=== PATIENT | male | born 1960 | race Hispanic/Latino ===

== ENCOUNTER 2019-10-30 15:49 | Observation (INO) | payer OTHER ==
[2019-10-30] MEDS ORDERED: ASPIRIN 81 MG CHEWABLE TABLET ONE (16:51)
[2019-10-30 17:45] LABS: Protime INR 1.05
[2019-10-30 17:48] LABS: Absolute Lymphocytes (CBC) 1.8 K/uL (0.7-4.9); Basophils % 0.7 % (0-1.3); Hematocrit 45.3 % (39.6-49.0); Lymphocytes % 16.6 % (15.3-44.8); MPV 7.6 fL (7.6-11.3); RBC Red Blood Cell Count 4.85 M/uL (4.33-5.43)
--- NOTE | 2019-10-30 17:55 | RAD REPORT ---
EXAM DESCRIPTION: Marisol Single View10/30/2019 5:11 pm CLINICAL HISTORY: Chest pain COMPARISON: 2011 FINDINGS: The lungs appear clear of acute infiltrate. The heart is normal size IMPRESSION: No acute abnormalities displayed
[2019-10-30 17:58] LABS: ALT/SGPT 53 U/L (12-78); AST/SGOT 31 U/L (15-37); Albumin 4.3 g/dL (3.4-5.0); Alkaline Phosphatase 71 U/L (45-117); BUN Blood Urea Nitrogen 21 mg/dL (7-18); Bicarbonate 31 mmol/L (21-32); Bilirubin Direct 0.1 mg/dL (0-0.2); Bilirubin Total 0.5 mg/dL (0.2-1.0); Glucose Level 104 mg/dL (74-106); Magnesium 2.4 mg/dL (1.8-2.4); NT PRO-BNP 27 pg/mL (<125); Potassium 3.4 mmol/L (3.5-5.1); Protein, Total 8.5 g/dL (6.4-8.2); Sodium Level 139 mmol/L (136-145); Troponin (Emerg Dept Use Only) < 0.02 ng/mL (0.0-0.045)
--- NOTE | 2019-10-30 18:24 | ER ---
Nurse's Notes [facility] Name: Liu Ugarte Age: 59 yrs Sex: Male : 1960 Arrival Date: 10/30/2019 Time: 15:58 Bed 15 Private MD: Diagnosis: Chest pain, unspecified;Shortness of breath Presentation: 10/29 16:09 Chief complaint: Patient states: shortness of breath and high blood pressure today. ss Also c/o chest pressure. Son reports that this happens quite often, last time being a week ago in [place] which they gave him medicine for his blood pressure and sent him home. Coronavirus screen: Patient denies a cough. Patient reports shortness of breath or difficulty breathing. Patient denies measured and/or subjective temperature greater than 100.4F prior to today's visit. Patient reports travel on a cruise ship or to a country the [facility] currently lists as an affected area. Patient denies contact with known and/or suspected case of COVID-19. Ebola Screen: Patient denies exposure to infectious person. Patient denies travel to an Ebola-affected area in the 21 days before illness onset. Initial Sepsis Screen: Does the patient meet any 2 criteria? No. Patient's initial sepsis screen is negative. Does the patient have a suspected source of infection? No. Patient's initial sepsis screen is negative. Risk Assessment: Do you want to hurt yourself or someone else? Patient reports no desire to harm self or others. Onset of symptoms was October 30, 2019. 16:09 Method Of Arrival: Ambulatory ss 16:09 Acuity: NAN 3 ss Historical: - Allergies: 16:12 No Known Allergies; ss - PMHx: 16:12 Hypertension; ss - PSHx: 16:12 None; ss - Immunization history:: Adult Immunizations up to date. - Social history:: Smoking status: Patient denies any tobacco usage or history of. Screenin:47 Abuse screen: Denies threats or abuse. Nutritional screening: No deficits noted. Tuberculosis screening: No symptoms or risk factors identified. Fall Risk None identified. Assessment: 16:30 General: Appears in no apparent distress. comfortable, Behavior is calm, cooperative, em appropriate for age, Denies fever. Pain: Denies pain. Neuro: Level of Consciousness is awake, alert, obeys commands, Oriented to person, place, time, situation, Appropriate for age. Cardiovascular: Reports shortness of breath, Denies nausea, palpitations, Rhythm is sinus rhythm. Respiratory: Reports shortness of breath at rest on exertion Airway is patent Respiratory effort is even, unlabored, Respiratory pattern is regular, symmetrical, Breath sounds are clear bilaterally. Denies cough. Derm: Skin is intact, is healthy with good turgor, Skin is pink, warm \T\ dry. Musculoskeletal: Capillary refill < 3 seconds, Range of motion: intact in all extremities. 17:30 Reassessment: Patient and/or family updated on plan of care and expected duration. Pain ah level reassessed. Patient is alert, oriented x 3, equal unlabored respirations, skin warm/dry/pink. 18:30 Reassessment: Patient and/or family updated on plan of care and expected duration. Pain ah level reassessed. Patient is alert, oriented x 3, equal unlabored respirations, skin warm/dry/pink. No needs voiced at this time. Awaiting on room assignment. 20:32 Reassessment: Report called to 4th floor. Vital Signs: 16:09 BP 135 / 67; Pulse 72; Resp 18; Temp 98.2(O); Pulse Ox 98% on R/A; Weight 117.93 kg; Height 5 ft. 10 in. (177.80 cm); Pain 7/10; 16:17 BP 171 / 80; Pulse 81; Resp 17; Pulse Ox 100% ; ah 17:52 BP 117 / 69; Pulse 73; Resp 11; Pulse Ox 91% ; ah 18:45 BP 113 / 67; Pulse 71; Resp 13; Pulse Ox 98% ; ah 19:30 BP 134 / 80; Pulse 69; Resp 13; Pulse Ox 100% ; ah 16:09 Body Mass Index 37.31 (117.93 kg, 177.80 cm) ED Course: 15:58 Patient arrived in ED. fj1 16:12 Triage completed. 16:12 Arm band placed on right wrist. 16:16 Sam Bonilla PA is PHCP. cp 16:16 Mumtaz Linares MD is Attending Physician. cp 16:38 Jeimy Cole, RN is Primary Nurse. 17:11 XRAY Chest (1 view) In Process Unspecified. EDMS 17:48 Patient has correct armband on for positive identification. Bed in low position. Call light in reach. Side rails up X 1. nuclear monitoring technician on. Pulse ox on. NIBP on. 17:48 Initial lab(s) drawn, by me, sent to lab. Inserted saline lock: 20 gauge in left antecubital area, using aseptic technique. 18:22 Sebastián Veliz MD is Hospitalizing Provider. cp 19:28 No provider procedures requiring assistance completed. Patient admitted, IV remains in place. intact. Administered Medications: 17:10 Drug: Aspirin Chewable Tablet 324 mg Route: PO; 18:36 Follow up: Response: No adverse reaction vc Outcome: 18:23 Decision to Hospitalize by Provider. cp 20:29 Admitted to [facility] accompanied by nurse, via wheelchair, room 403, with chart, Report called to Larry Dixon RN 20:29 Condition: stable 20:29 Instructed on the need for admit. 20:51 Patient left the ED. vc Signatures: Dispatcher [employer] Tray Serrano RN RN Aminah Vallecillo RN RN ss Page, Corey, COCO PA cp Delmy Mendiola RN RN John Sutton fj1 Jeimy Cole RN RN
--- NOTE | 2019-10-30 18:24 | EDPHYS ---
Physician Documentation [facility] Name: Liu Ugarte Age: 59 yrs Sex: Male : 1960 Arrival Date: 10/30/2019 Time: 15:58 Bed 15 Private MD: ED Physician Mumtaz Linares HPI: 10/29 16:40 This 59 yrs old Male presents to ER via Ambulatory with complaints of cp Breathing Difficulty. 16:40 The patient has shortness of breath at rest, with light activity. Onset: The cp symptoms/episode began/occurred 2 month(s) ago, and became worse. Duration: The symptoms are continuous, and are steadily getting worse. Associated signs and symptoms: Pertinent positives: chest pressure, Pertinent negatives: non-productive cough, productive cough, fever, vomiting. Severity of symptoms: in the emergency department the symptoms are unchanged despite home interventions. Patient reports recently being seen and diagnosed with HTN by physician in [place]. Historical: - Allergies: 16:12 No Known Allergies; ss - PMHx: 16:12 Hypertension; ss - PSHx: 16:12 None; ss - Immunization history:: Adult Immunizations up to date. - Social history:: Smoking status: Patient denies any tobacco usage or history of. ROS: 16:45 Constitutional: Negative for body aches, chills, fever, poor PO intake. cp 16:45 Eyes: Negative for injury, pain, redness, and discharge. cp 16:45 ENT: Negative for ear pain, sore throat, difficulty swallowing, difficulty handling secretions. 16:45 Cardiovascular: Positive for chest pain, Negative for edema, palpitations. 16:45 Respiratory: Positive for shortness of breath, Negative for cough, wheezing. 16:45 Abdomen/GI: Negative for abdominal pain, nausea, vomiting, and diarrhea. 16:45 Back: Negative for pain at rest, pain with movement, radiated pain. 16:45 Neuro: Negative for altered mental status, headache, weakness. 16:45 All other systems are negative. Exam: 16:45 ECG was reviewed by the Attending Physician. cp 16:50 Constitutional: The patient appears in no acute distress, alert, awake, cp non-diaphoretic, non-toxic, well developed, well nourished, obese. 16:50 Head/Face: Normocephalic, atraumatic. cp 16:50 Eyes: Periorbital structures: appear normal, Conjunctiva: normal, no exudate, no injection, Sclera: no appreciated abnormality, Lids and lashes: appear normal, bilaterally. 16:50 ENT: External ear(s): are unremarkable, Ear canal(s): are normal, TM's: dullness, bilaterally, Nose: is normal, Mouth: Lips: moist, Oral mucosa: moist, Posterior pharynx: is normal, airway is patent. 16:50 Neck: ROM/movement: is normal, is supple, without pain, no range of motions limitations, no nuchal rigidity. 16:50 Chest/axilla: Inspection: normal, Palpation: is normal, no crepitus, no tenderness. 16:50 Cardiovascular: Rate: normal, Rhythm: regular, Edema: very mild bilateral lower legs, JVD: is not appreciated. 16:50 Respiratory: the patient does not display signs of respiratory distress, Respirations: normal, no use of accessory muscles, no retractions, labored breathing, is not present, Breath sounds: are clear throughout, no decreased breath sounds, no stridor, no wheezing. 16:50 Abdomen/GI: Inspection: obese Bowel sounds: active, all quadrants, Palpation: abdomen is soft and non-tender, in all quadrants, rebound tenderness, is not appreciated, Hernia: noted in the umbilical area, incarceration, is not appreciated, tenderness, is not appreciated. 16:50 Back: pain, is absent, ROM is normal. 16:50 Neuro: Orientation: to person, place \T\ time. Mentation: is normal, Motor: moves all fours, strength is normal, Sensation: is normal, Gait: is steady, at a normal pace, without difficulty. Vital Signs: 16:09 BP 135 / 67; Pulse 72; Resp 18; Temp 98.2(O); Pulse Ox 98% on R/A; Weight 117.93 kg; ss Height 5 ft. 10 in. (177.80 cm); Pain 7/10; 16:17 BP 171 / 80; Pulse 81; Resp 17; Pulse Ox 100% ; ah 17:52 BP 117 / 69; Pulse 73; Resp 11; Pulse Ox 91% ; ah 18:45 BP 113 / 67; Pulse 71; Resp 13; Pulse Ox 98% ; ah 19:30 BP 134 / 80; Pulse 69; Resp 13; Pulse Ox 100% ; ah 16:09 Body Mass Index 37.31 (117.93 kg, 177.80 cm) ss MDM: 16:19 Patient medically screened. cp 18:20 Data reviewed: vital signs, nurses notes, lab test result(s), EKG, radiologic studies, cp plain films, I have discussed the patient's presentation/case with the attending Emergency Department Physician; and as a result, I will admit patient. 18:20 Test interpretation: by ED physician or midlevel provider: ECG. Counseling: I had a cp detailed discussion with the patient and/or guardian regarding: the historical points, exam findings, and any diagnostic results supporting the discharge/admit diagnosis, lab results, radiology results, the need for further work-up and treatment in the hospital. Physician consultation: Sebastián Veliz MD was called at 18:20, was contacted at 18:20, regarding admission, to the telemetry unit. patient's condition. 10/29 16:36 Order name: Basic Metabolic Panel; Complete Time: 18:08 cp 10/29 18:08 Interpretation: Normal except: K 3.4; BUN 21; GFR 86. cp 10/29 16:36 Order name: CBC with Diff; Complete Time: 18:08 cp 10/29 18:08 Interpretation: Normal except: WBC 11.1; CHARLI% 75.1; NEUT A 8.3. cp 10/29 16:36 Order name: LFT's; Complete Time: 18:08 cp 10/29 16:36 Order name: Magnesium; Complete Time: 18:08 cp 10/29 16:36 Order name: NT PRO-BNP; Complete Time: 18:08 cp 10/29 16:36 Order name: PT-INR; Complete Time: 18:08 cp 10/29 16:36 Order name: Troponin (emerg Dept Use Only); Complete Time: 18:08 cp 10/29 18:08 Interpretation: TROPED < 0.02; Reviewed. 10/29 16:36 Order name: COVID-19; Complete Time: 20:28 cp 10/29 18:22 Order name: D-Dimer; Complete Time: 20:28 cp 10/29 18:22 Order name: LAB Add On cp 10/29 18:32 Order name: NT PRO-BNP EDTN 10/29 18:32 Order name: Thyroid Stimulating Hormone EDMS 10/29 18:32 Order name: Urinalysis EDMS 10/29 18:32 Order name: CBC with Automated Diff EDMS 10/29 18:32 Order name: CBC with Automated Diff EDMS 10/29 18:32 Order name: CKMB Creatine Kinase MB EDMS 10/29 18:32 Order name: CKMB Creatine Kinase MB EDMS 10/29 18:32 Order name: CKMB Creatine Kinase MB EDMS 10/29 18:32 Order name: CKMB Creatine Kinase MB EDMS 10/29 18:32 Order name: Comprehensive Metabolic Panel EDMS 10/29 18:32 Order name: Comprehensive Metabolic Panel EDMS 10/29 18:32 Order name: Creatine Phosphokinase EDMS 10/29 18:32 Order name: Creatine Phosphokinase EDMS 10/29 18:32 Order name: Creatine Phosphokinase EDMS 10/29 18:32 Order name: Creatine Phosphokinase EDMS 10/29 18:32 Order name: Lipid Profile EDMS 10/29 18:32 Order name: Lipid Profile EDMS 10/29 18:32 Order name: Magnesium EDMS 10/29 18:32 Order name: Magnesium EDMS 10/29 18:32 Order name: Phosphorus EDTN 10/29 16:36 Order name: XRAY Chest (1 view); Complete Time: 18:08 cp 10/29 18:20 Interpretation: Report review. 10/29 16:36 Order name: EKG; Complete Time: 16:37 cp 10/29 16:36 Order name: Cardiac monitoring; Complete Time: 16:39 cp 10/29 16:36 Order name: EKG - Nurse/Tech; Complete Time: 16:59 cp 10/29 16:36 Order name: IV Saline Lock; Complete Time: 17:20 cp 10/29 16:36 Order name: Labs collected and sent; Complete Time: 17:20 cp 10/29 16:36 Order name: O2 Per Protocol; Complete Time: 16:39 cp 10/29 16:36 Order name: O2 Sat Monitoring; Complete Time: 16:39 cp 10/29 18:32 Order name: Heart Healthy EDMS 10/29 18:32 Order name: Phosphorus EDMS 10/29 18:32 Order name: Troponin I EDMS 10/29 18:32 Order name: Troponin I EDMS 10/29 18:32 Order name: Troponin I EDMS 10/29 18:32 Order name: Troponin I [facility] 10/29 19:17 Order name: Thyroid Stimulating Hormone; Complete Time: 20:28 EDTN EC:45 Rate is 77 beats/min. Rhythm is regular. ND interval is normal. QRS interval is normal. cp QT interval is normal. T waves are Flattened in lead aVL. Interpreted by me. Reviewed by me. Administered Medications: 17:10 Drug: Aspirin Chewable Tablet 324 mg Route: PO; 18:36 Follow up: Response: No adverse reaction vc Disposition: 10/30 07:29 Co-signature as Attending Physician, Mumtaz Linares MD I agree with the assessment and kdr plan of care. Disposition: 10/30/19 18:23 Hospitalization ordered by Sebastián Veliz for Observation. Preliminary diagnosis are Chest pain, unspecified, Shortness of breath. - Bed requested for Telemetry/MedSurg (observation). - Status is Observation. vc - Condition is Stable. - Problem is new. - Symptoms are unchanged. Signatures: Dispatcher [facility] Mumtaz Linares MD MD [facility] Aminah Gardiner RN RN Oni Asencio, POLICE JUSTICE-C POLICE JUSTICE-Cla1 Sam Bonilla PA PA cp Georgette Dixon RN RN Delmy Mendiola RN RN Jeimy Cole RN RN Corrections: (The following items were deleted from the chart) 10/29 19:37 18:23 Hospitalization Ordered by Sebastián Veliz MD for Observation. Preliminary cg diagnosis is Chest pain, unspecified; Shortness of breath. Bed requested for Telemetry/MedSurg (observation). Status is Observation. Condition is Stable. Problem is new. Symptoms are unchanged. cp 20:51 19:37 10/30/2019 18:23 Hospitalization Ordered by Sebastián Veliz MD for Observation. vc Preliminary diagnosis is Chest pain, unspecified; Shortness of breath. Bed requested for Telemetry/MedSurg (observation). Status is Observation. Condition is Stable. Problem is new. Symptoms are unchanged. cg
[2019-10-30] MEDS ORDERED: ACETAMINOPHEN 500 MG TAB PO PRN (18:28)
[2019-10-30] MEDS ORDERED: ONDANSETRON 4 MG/2 ML VIAL IV PRN (18:28)
--- NOTE | 2019-10-30 18:56 | P.HP ---
Certification for Inpatient Patient admitted to: Observation With expected LOS: <2 Midnights Patient will require the following post-hospital care: None Practitioner: I am a practitioner with admitting privileges, knowledge of patient current condition, hospital course, and medical plan of care. Services: Services provided to patient in accordance with Admission requirements found in Title 42 Section 412.3 of the Code of Federal Regulations Patient History Date of Service: 10/31/19 Reason for admission: Chest Discomfort History of Present Illness: 59-year-old male with no significant past medical history other than the hypertension came with chest discomfort which has been going on for the last 2 days and has been progressively worsening and was brought to ER. States that the pain is retrosternal, nonradiating, not associated with any diaphoresis. No fever or chills. No vomiting or diarrhea Has a recent travel No sick contacts Allergies No Known Allergies Allergy (Verified 10/30/19 21:35) Home medications list reviewed: Yes Home Medications: Amlodipine [Norvasc*] 5 mg PO DAILY 10/30/19 Aspirin Chewable [Aspirin Chewable*] 100 mg PO DAILY 10/30/19 Atenolol [Tenormin] 50 mg PO DAILY AT SUPPER 10/30/19 Losartan/Hydrochlorothiazide [Losartan-Hctz 50-12.5 mg Tab] 1 tab PO DAILY 10/30/19 Atorvastatin Calcium [Lipitor] 40 mg PO BEDTIME #30 tab 10/31/19 - Past Medical/Surgical History Past Medical History: Reviewed- Non-Contributory -: HTN Past Surgical History: Reviewed- Non-Contributory - Family History Family History: Reviewed- Non-Contributory - Social History Smoking Status: Never smoker Review of Systems 10-point ROS is otherwise unremarkable Physical Examination - Vital Signs Temperature: 98.2 F Blood Pressure: 135/67 Pulse: 74 Respirations: 18 - Physical Exam General: Alert, In no apparent distress HEENT: Atraumatic, PERRLA, Mucous membr. moist/pink, EOMI, Sclerae nonicteric Neck: Supple, 2+ carotid pulse no bruit, No LAD, Without JVD or thyroid abnormality Respiratory: Clear to auscultation bilaterally, Normal air movement Cardiovascular: Regular rate/rhythm, Normal S1 S2 Gastrointestinal: Normal bowel sounds, No tenderness Musculoskeletal: No tenderness Integumentary: No rashes Neurological: Normal gait, Normal speech, Normal strength at 5/5 x4 extr, Normal tone, Normal affect Lymphatics: No axilla or inguinal lymphadenopathy - Studies Laboratory Data (last 24 hrs) 10/30/19 17:10: PT 12.4, INR 1.05 10/30/19 17:10: WBC 11.1 H, Hgb 15.5, Hct 45.3, Plt Count 373 10/30/19 17:10: Sodium 139, Potassium 3.4 L, BUN 21 H, Creatinine 0.90, Glucose 104, Magnesium 2.4, Total Bilirubin 0.5, AST 31, ALT 53, Alkaline Phosphatase 71 Assessment and Plan - Problems (Diagnosis) (1) Chest pain Status: Acute - Plan Chest pain to rule out ACS Hypertension Hyperlipidemia Obesity Plan Monitor under telemetry Trend cardiac enzymes will start on aspirin statin Antihypertensives titrated Continue home medications and titrate as needed Advised lifestyle modification GI/DVT prophylaxis advanced directive full code - Advance Directives Does patient have a Living Will: No Does patient have a Durable POA for Healthcare: No Time Spent Managing Pts Care (In Minutes): 42
[2019-10-30] MEDS ORDERED: ATORVASTATIN 40 MG TAB PO SCH (21:00)
[2019-10-30 21:29] VITALS: BMI 37.9
[2019-10-30] MEDS: ENOXAPARIN 40 MG/0.4 ML SQ SCH (22:36)
[2019-10-30] MEDS ORDERED: POTASSIUM 25 MEQ EFFERV TAB PO SCH (23:00)
[2019-10-31 00:04] LABS: CKMB Creatine Kinase MB 1.5 ng/mL (0.3-3.6); Creatine Phosphokinase 193 U/L (39-308); Troponin I < 0.02 ng/mL (0.0-0.045)
[2019-10-31 01:31] LABS: Urine Appearance CLEAR; Urine Bilirubin NEGATIVE (NEG); Urine Blood NEGATIVE (NEG); Urine Color YELLOW; Urine Glucose NEGATIVE (NEG); Urine Protein NEGATIVE (NEG); Urine Specific Gravity 1.025 (1.005-1.030); Urine Urobilinogen 0.2 mg/dL (0.2-1.0)
[2019-10-31 01:32] LABS: Urine Microscopic Reflex NO UMIC
[2019-10-31 06:17] LABS: Absolute Lymphocytes (CBC) 2.3 K/uL (0.7-4.9); Basophils % 0.6 % (0-1.3); Hematocrit 42.3 % (39.6-49.0); Lymphocytes % 25.7 % (15.3-44.8); MPV 7.2 fL (7.6-11.3); RBC Red Blood Cell Count 4.56 M/uL (4.33-5.43)
[2019-10-31 06:30] VITALS: O2SAT 99
[2019-10-31 06:44] LABS: CKMB Creatine Kinase MB 1.4 ng/mL (0.3-3.6); Creatine Phosphokinase 169 U/L (39-308); Troponin I < 0.02 ng/mL (0.0-0.045)
[2019-10-31 06:46] LABS: ALT/SGPT 47 U/L (12-78); AST/SGOT 24 U/L (15-37); Albumin 3.6 g/dL (3.4-5.0); Alkaline Phosphatase 64 U/L (45-117); BUN Blood Urea Nitrogen 19 mg/dL (7-18); Bicarbonate 34 mmol/L (21-32); Bilirubin Total 0.7 mg/dL (0.2-1.0); Glucose Level 105 mg/dL (74-106); HDL Cholesterol 41 mg/dL (40-60); LDL Cholesterol, Calculated 97 (<130); Magnesium 2.5 mg/dL (1.8-2.4); Phosphorus 3.9 mg/dL (2.5-4.9); Potassium 3.7 mmol/L (3.5-5.1); Protein, Total 7.3 g/dL (6.4-8.2); Sodium Level 139 mmol/L (136-145)
[2019-10-31] MEDS: ENOXAPARIN 40 MG/0.4 ML SQ SCH (07:56)
[2019-10-31] MEDS ORDERED: ASPIRIN EC 81 MG TAB PO SCH (09:00)
--- NOTE | 2019-10-31 12:34 | P.DS ---
Admission Date: 10/30/19 Discharge Date: 10/31/19 Disposition: ROUTINE DISCHARGE Discharge Condition: GOOD Reason for Admission: Chest Discomfort Brief History of Present Illness: 59-year-old male with no significant past medical history other than the hypertension came with chest discomfort which has been going on for the last 2 days and has been progressively worsening and was brought to ER. States that the pain is retrosternal, nonradiating, not associated with any diaphoresis. No fever or chills. No vomiting or diarrhea Has a recent travel No sick contacts Hospital Course: Chest pain unspecified Hypertension Hyperlipidemia Obesity The patient was admitted and was monitored closely under telemetry cardiac enzymes were trended and was negative The patient was started on aspirin statin Continue home medications and titrated antihypertensives for control of blood pressure Advised lifestyle modification. Patient was recommended about a cardiology consult and possible cardiology work up but the patient wanted to s do as an outpatient follow up Vital Signs/Physical Exam: Temp Pulse Resp BP Pulse Ox 98.6 F 61 18 137/77 97 10/31/19 08:00 10/31/19 08:00 10/31/19 08:00 10/31/19 08:00 10/31/19 08:00 General: Alert, In no apparent distress, Oriented x3, Obese HEENT: Atraumatic, Normocephalic Neck: Supple Respiratory: Clear to auscultation bilaterally, Normal air movement Cardiovascular: Regular rate/rhythm, Normal S1 S2 Capillary refill: <2 Seconds Gastrointestinal: Normal bowel sounds, Soft and benign Musculoskeletal: No clubbing, No swelling Integumentary: No rashes Neurological: Normal speech, Normal strength at 5/5 x4 extr Lymphatics: No axilla or inguinal lymphadenopathy Laboratory Data at Discharge: WBC 9.0 K/uL (4.3-10.9) D 10/31/19 05:35 Hgb 14.8 g/dL (13.6-17.9) 10/31/19 05:35 Hct 42.3 % (39.6-49.0) 10/31/19 05:35 Plt Count 329 K/uL (152-406) 10/31/19 05:35 PT 12.4 SECONDS (9.5-12.5) 10/30/19 17:10 INR 1.05 10/30/19 17:10 Sodium 139 mmol/L (136-145) 10/31/19 05:35 Potassium 3.7 mmol/L (3.5-5.1) 10/31/19 05:35 BUN 19 mg/dL (7-18) H 10/31/19 05:35 Creatinine 0.84 mg/dL (0.55-1.3) 10/31/19 05:35 Glucose 105 mg/dL (74-106) 10/31/19 05:35 Phosphorus 3.9 mg/dL (2.5-4.9) 10/31/19 05:35 Magnesium 2.5 mg/dL (1.8-2.4) H 10/31/19 05:35 Total Bilirubin 0.7 mg/dL (0.2-1.0) 10/31/19 05:35 AST 24 U/L (15-37) 10/31/19 05:35 ALT 47 U/L (12-78) 10/31/19 05:35 Alkaline Phosphatase 64 U/L (45-117) 10/31/19 05:35 Troponin I Cancelled 10/31/19 10:30 Triglycerides 170 mg/dL (<150) H 10/31/19 05:35 Cholesterol 172 mg/dL (<200) 10/31/19 05:35 HDL Cholesterol 41 mg/dL (40-60) 10/31/19 05:35 Cholesterol/HDL Ratio 4.20 10/31/19 05:35 Home Medications: Amlodipine [Norvasc*] 5 mg PO DAILY 10/30/19 Aspirin Chewable [Aspirin Chewable*] 100 mg PO DAILY 10/30/19 Atenolol [Tenormin] 50 mg PO DAILY AT SUPPER 10/30/19 Losartan/Hydrochlorothiazide [Losartan-Hctz 50-12.5 mg Tab] 1 tab PO DAILY 10/30/19 Atorvastatin Calcium [Lipitor] 40 mg PO BEDTIME #30 tab 10/31/19 New Medications: Atorvastatin Calcium [Lipitor] 40 mg PO BEDTIME #30 tab Diet: AHA Time spent managing pt's care (in minutes): 42
[2019-10-31 12:42] VITALS: BP 135/67; TEMP 98.2
--- NOTE | 2019-10-31 15:26 | EKG ---
Test Date: 2019-10-30 Test Time: 16:36:51 Medical Pathology Teacher: GABI MEASUREMENT RESULTS: Intervals: Rate: 77 ME: 148 QRSD: 90 QT: 392 QTc: 443 [place]: P: 71 ME: 148 QRS: 62 T: 67 INTERPRETIVE STATEMENTS: Sinus rhythm with premature supraventricular complexes Otherwise normal ECG Compared to ECG 01/05/2014 12:35:02 Atrial premature complex(es) now present Electronically Signed On 10-31-19 15:24:14 CDT by Hair Gonzales
== END 2019-10-31 10:29 | disposition home or self-care (01) ==
LOC: ER 15:49 → ERHOLD 18:29 → 4TH 20:45
PROVIDERS: ADMIT Family Medicine; ATTEND Family Medicine
DX: R07.9 Chest pain, unspecified (principal); I10 Essential (primary) hypertension; E78.5 Hyperlipidemia, unspecified; R06.02 Shortness of breath; Z20.828 Contact with and (suspected) exposure to other viral communicable diseases; E66.9 Obesity, unspecified; Z68.37 Body mass index [BMI] 37.0-37.9, adult; Z79.82 Long term (current) use of aspirin; Z79.899 Other long term (current) drug therapy
CPT/HCPCS: 93005; 85025 ×2; 80048; 36415 ×2; 83735 ×2; 82550 ×2; 84100; 85610; 80061; 85379; 80076; 84443; 81003; 84484 ×3; 82553 ×2; 80053; 83880; 71045; 99285; U0002; J1650 ×2; G0378 ×3

== ENCOUNTER 2022-05-06 00:39 | Emergency (ER) | payer OTHER, SELFPAY ==
--- OUTSIDE RECORDS SUMMARY | 2022-05-06 00:59 | XMS REPORT | Continuity of Care Document ---
:1960 Author Organization [facility] t Address [address] [place] [address] Care Team Providers Name Role Phone Chalino WILKINSON, [place] Primary Care Physician [phone] SHUN ALMANZAR Attending Clinician Unavailable Payers Payer Name Policy Type Policy Number Effective Date Expiration Date [facility] [id number] 2019 PPO 00:00:00 Problems This patient has no known problems. Allergies, Adverse Reactions, Alerts Allergy Allergy Status Severity Reaction(s) Onset Inactive Treating Comm ents Source Name Type Date Date Clinician NO KNOWN Drug Active Univers ALLERGIE Class ity of [facility] Medications Ordered Filled Start Stop Current Ordering Indication Dosage Frequency Signature Comments Components Source Medication Medication Date Date Medication? Clinician (SIG) Name Name captopril No 1mg 25 mg 8-22 tablet 00:00: 00 Vital Signs Vital Name Observation Time Observation Value Comments Source BP Systolic 2022-04-17 10:01:00 170 mm[Hg] BP Diastolic 2022-04-17 10:01:00 89 mm[Hg] Weight Measured 2022-04-17 10:01:00 255.20 pounds Height Measured 2022-04-17 10:01:00 71.00 inches Body Temperature 2022-04-17 10:01:00 98.10 degrees Heart Rate 2022-04-17 10:01:00 69.00 /min Respiratory Rate 2022-04-17 10:01:00 18.00 /min BP Systolic 2018-07-08 13:35:00 157 mm[Hg] BP Diastolic 2018-07-08 13:35:00 88 mm[Hg] Weight Measured 2018-07-08 13:35:00 262.00 pounds Height Measured 2018-07-08 13:35:00 71.00 inches Body Temperature 2018-07-08 13:35:00 99.70 degrees Heart Rate 2018-07-08 13:35:00 85.00 /min Respiratory Rate 2018-07-08 13:35:00 16.00 /min BP Systolic 2016-11-28 09:22:00 169 mm[Hg] BP Diastolic 2016-11-28 09:22:00 84 mm[Hg] Weight Measured 2016-11-28 09:22:00 Height Measured 2016-11-28 09:22:00 Body Temperature 2016-11-28 09:22:00 Heart Rate 2016-11-28 09:22:00 Respiratory Rate 2016-11-28 09:22:00 BP Systolic 2016-11-28 08:39:00 158 mm[Hg] BP Diastolic 2016-11-28 08:39:00 73 mm[Hg] Weight Measured 2016-11-28 08:39:00 249.20 pounds Height Measured 2016-11-28 08:39:00 71.00 inches Body Temperature 2016-11-28 08:39:00 98.90 degrees Heart Rate 2016-11-28 08:39:00 74.00 /min Respiratory Rate 2016-11-28 08:39:00 16.00 /min Procedures Procedure Date / Time Performed Performing Clinician [facility] e [address] Ecg Routine Ecg W/least 12 2016-11-28 00:00:00 Lds W/i r Plan of Care Planned Activity Planned Date Details Comments Source Goal Plan of Care Note [code = 20717-5] Goal Plan of Care Note [code = 31815-2] Goal Plan of Care Note [code = 98692-8] Goal Plan of Care Note [code = 74437-2] Goal Plan of Care Note [code = 04366-1] Goal Plan of Care Note [code = 32850-6] Goal Plan of Care Note [code = 08604-1] Goal Plan of Care Note [code = 91672-1] Goal Plan of Care Note [code = 86177-2] Goal Plan of Care Note [code = 21658-2] Goal Plan of Care Note [code = 29488-6] Encounters Start End Encounter Admission Attending Care Care Encounter Source Date/Time Date/Time Type Type Clinicians Facility Department ID 2022-04-17 2022-04-[address] [facility] [id number] Parveen 09:18:11 09:18:11 0109 F Elia 2022-04-17 2022-04-17 Outpatient [id number] 00:00:00 00:00:00 Visit [id number] 2019-11-15 2019-11-15 Emergency X [facility] [id number] Univers 02:27:00 02:27:00 SHUN shaw [facility] Results Test Description Test Time Test Comments Results Result Comments Source CBC W/AUTO DIFF 2016-11-29 00:00:00 Test Item Value Reference Range Interpretation Comme nts WBC (test code = 1001) 7.9 K/UL RBC (test code = 1002) 5.09 M/UL HEMOGLOBIN (test code = 1003) 16.2 G/DL HEMATOCRIT (test code = 1004) 46.7 % MCV (test code = 1005) 91.7 fL MCH (test code = 1006) 31.8 PG MCHC (test code = 1007) 34.7 G/DL RDW (test code = 1038) 13.1 % NEUTROPHILS (test code = 1008) 64.0 % LYMPHOCYTES (test code = 1010) 27.8 % MONOCYTES (test code = 1011) 6.2 % EOSINOPHILS (test code = 1012) 1.4 % BASOPHILS (test code = 1013) 0.6 % PLATELET COUNT (test code = 1015) 356 K/UL HEMOGLOBIN [id number] 00:00:00 Test Item Value Reference Range Interpretation Comments HEMOGLOBIN A1c (test code = 13445) 5.7 % HEMOGLOBIN [id number] 00:00:00 Test Item Value Reference Range Interpretation Comments HEMOGLOBIN A1c (test code = 06669) 5.7 % HEMOGLOBIN [id number] 00:00:00 Test Item Value Reference Range Interpretation Comments HEMOGLOBIN A1c (test code = 62194) 5.7 % [id number] 00:00:00 Test Item Value Reference Range Interpretation Comments TSH (test code = 2821) 1.200 UIU/ML [id number] 00:00:00 Test Item Value Reference Range Interpretation Comments TSH (test code = 2821) 1.200 UIU/ML [id number] 00:00:00 Test Item Value Reference Range Interpretation Comments TSH (test code = 2821) 1.200 UIU/ML PSA, [id number] 00:00:00 Test Item Value Reference Range Interpretation Comments PSA, TOTAL (test code = 2606) 1.40 NG/ML PSA, [id number] 00:00:00 Test Item Value Reference Range Interpretation Comments PSA, TOTAL (test code = 2606) 1.40 NG/ML PSA, [id number] 00:00:00 Test Item Value Reference Range Interpretation Comments PSA, TOTAL (test code = 2606) 1.40 NG/ML COMPREHENSIVE METABOLIC [id number] 00:00:00 Test Item Value Reference Range Interpretation Comments GLUCOSE (test code = 2217) 106 MG/DL BUN (test code = 2208) 16 MG/DL CREATININE (test code = 2214) 0.73 MG/DL eGFR AMER. (test code 120 ML/MIN/1.73 = 74155) eGFR NON- AMER. (test 104 ML/MIN/1.73 code = 81579) CALC BUN/CREAT (test code = 22 RATIO 2235) SODIUM (test code = 2231) 145 MEQ/L POTASSIUM (test code = 2228) 4.3 MEQ/L CHLORIDE (test code = 2215) 101 MEQ/L CARBON DIOXIDE (test code = 28 MEQ/L 2205) CALCIUM (test code = 2209) 9.5 MG/DL PROTEIN, TOTAL (test code = 7.4 G/DL 2228) ALBUMIN (test code = 2201) 4.6 G/DL CALC GLOBULIN (test code = 2.8 G/DL 2240) CALC A/G RATIO (test code = 1.6 RATIO 2234) BILIRUBIN, TOTAL (test code = 0.4 MG/DL 2206) ALKALINE PHOSPHATASE (test 64 U/L code = 2204) AST (test code = 2218) 20 U/L ALT (test code = 2219) 22 U/L COMPREHENSIVE METABOLIC [id number] 00:00:00 Test Item Value Reference Range Interpretation Comments GLUCOSE (test code = 2217) 106 MG/DL BUN (test code = 2208) 16 MG/DL CREATININE (test code = 2214) 0.73 MG/DL eGFR AMER. (test code 120 ML/MIN/1.73 = 94670) eGFR NON- AMER. (test 104 ML/MIN/1.73 code = 37112) CALC BUN/CREAT (test code = 22 RATIO 2235) SODIUM (test code = 2231) 145 MEQ/L POTASSIUM (test code = 2228) 4.3 MEQ/L CHLORIDE (test code = 2215) 101 MEQ/L CARBON DIOXIDE (test code = 28 MEQ/L 2205) CALCIUM (test code = 2209) 9.5 MG/DL PROTEIN, TOTAL (test code = 7.4 G/DL 2228) ALBUMIN (test code = 2201) 4.6 G/DL CALC GLOBULIN (test code = 2.8 G/DL 2239) CALC A/G RATIO (test code = 1.6 RATIO 2233) BILIRUBIN, TOTAL (test code = 0.4 MG/DL 2206) ALKALINE PHOSPHATASE (test 64 U/L code = 2204) AST (test code = 2218) 20 U/L ALT (test code = 2219) 22 U/L LIPID [id number] 00:00:00 Test Item Value Reference Range Interpretation Comments CHOLESTEROL (test code = 2210) 230 MG/DL TRIGLYCERIDES (test code = 2232) 119 MG/DL HDL CHOLESTEROL (test code = 2220) 57 MG/DL CALC LDL CHOL (test code = 2237) 149 MG/DL RISK RATIO LDL/HDL (test code = 2.62 RATIO 2238) LIPID [id number] 00:00:00 Test Item Value Reference Range Interpretation Comments CHOLESTEROL (test code = 2210) 230 MG/DL TRIGLYCERIDES (test code = 2232) 119 MG/DL HDL CHOLESTEROL (test code = 2220) 57 MG/DL CALC LDL CHOL (test code = 2237) 149 MG/DL RISK RATIO LDL/HDL (test code = 2.62 RATIO 2238) CBC W/AUTO [id number] 00:00:00 Test Item Value Reference Range Interpretation Comments WBC (test code = 1001) 7.9 K/UL RBC (test code = 1002) 5.09 M/UL HEMOGLOBIN (test code = 1003) 16.2 G/DL HEMATOCRIT (test code = 1004) 46.7 % MCV (test code = 1005) 91.7 fL MCH (test code = 1006) 31.8 PG MCHC (test code = 1007) 34.7 G/DL RDW (test code = 1038) 13.1 % NEUTROPHILS (test code = 1008) 64.0 % LYMPHOCYTES (test code = 1010) 27.8 % MONOCYTES (test code = 1011) 6.2 % EOSINOPHILS (test code = 1012) 1.4 % BASOPHILS (test code = 1013) 0.6 % PLATELET COUNT (test code = 1015) 356 K/UL CBC W/AUTO [id number] 00:00:00 Test Item Value Reference Range Interpretation Comments WBC (test code = 1001) 7.9 K/UL RBC (test code = 1002) 5.09 M/UL HEMOGLOBIN (test code = 1003) 16.2 G/DL HEMATOCRIT (test code = 1004) 46.7 % MCV (test code = 1005) 91.7 fL MCH (test code = 1006) 31.8 PG MCHC (test code = 1007) 34.7 G/DL RDW (test code = 1038) 13.1 % NEUTROPHILS (test code = 1008) 64.0 % LYMPHOCYTES (test code = 1010) 27.8 % MONOCYTES (test code = 1011) 6.2 % EOSINOPHILS (test code = 1012) 1.4 % BASOPHILS (test code = 1013) 0.6 % PLATELET COUNT (test code = 1015) 356 K/UL
[2022-05-06 01:13] LABS: Absolute Lymphocytes (CBC) 2.8 K/uL (0.7-4.9); Lymphocytes % 26.9 % (15.3-44.8); MCV 90.8 fL (80-100); MPV 6.9 fL (7.6-11.3); RBC Red Blood Cell Count 5.07 M/uL (4.33-5.43)
[2022-05-06 01:30] LABS: Magnesium 2.5 mg/dL (1.6-2.4); Potassium 3.1 mmol/L (3.5-5.1); Troponin High Sensitivity 7.6 pg/mL (<58.9)
--- NOTE | 2022-05-06 03:18 | EDPHYS ---
Physician Documentation [facility] Name: Liu Ugarte Age: 62 yrs Sex: Male : 1960 Arrival Date: 05/06/2022 Time: 00:41 Bed 6 Private MD: ED Physician Alonzo Gallo HPI: 05/06 00:53 This 62 yrs old Male presents to ER via Unassigned with complaints of ms3 Breathing Difficulty. 00:53 62-year-old male with past medical history of hypertension, hyperlipidemia, diabetes ms3 presents for labile blood pressure and shortness of breath with exertion that is been ongoing for 2 days. Patient denies nausea, vomiting, chest pain. Patient denies alleviating factors.. Historical: - Allergies: 01:05 No Known Allergies; kl - Home Meds: 01:05 metformin 500 mg Oral tr24 1 tab once daily [Active]; atorvastatin 40 mg oral tab 1 tab kl once daily [Active]; lisinopril 20 mg Oral tab 1 tab once daily [Active]; - PMHx: 01:05 Hypertension; NIDDM; kl - PSHx: 01:05 hernia repair; kl - Immunization history:: Adult Immunizations not up to date. - Social history:: Smoking status: Patient denies any tobacco usage or history of. ROS: 00:53 Constitutional: Negative for fever, and chills. Neck: Negative for injury, pain, and ms3 swelling, Cardiovascular: Negative for chest pain, and palpitations. Respiratory: Negative for shortness of breath, cough, wheezing, and pleuritic chest pain, Abdomen/GI: Negative for abdominal pain, nausea, vomiting, diarrhea, and constipation, MS/Extremity: Negative for injury and deformity, Skin: Negative for injury, rash, and discoloration. 00:53 All other systems are negative. Exam: 00:53 Constitutional: This is a well developed, well nourished patient who is awake, alert, ms3 and in no acute distress. Head/Face: Normocephalic, atraumatic. ENT: Nares patent. No nasal discharge, no septal abnormalities noted. Tympanic membranes are normal and external auditory canals are clear. Oropharynx with no redness, swelling, or masses, exudates, or evidence of obstruction, uvula midline. Mucous membranes moist. Neck: Trachea midline, no cervical lymphadenopathy. Supple, full range of motion without nuchal rigidity, or vertebral point tenderness. No Meningismus. Chest/axilla: Normal chest wall appearance and motion. Nontender with no deformity. Cardiovascular: Regular rate and rhythm with a normal S1 and S2. No gallops, murmurs, or rubs. Normal PMI, no JVD. No pulse deficits. Respiratory: Lungs have equal breath sounds bilaterally, clear to auscultation and percussion. No rales, rhonchi or wheezes noted. No increased work of breathing, no retractions or nasal flaring. Skin: Warm, dry with normal turgor. Normal color with no rashes, no lesions, and no evidence of cellulitis. MS/ Extremity: Pulses equal, no cyanosis. Neurovascular intact. Full, normal range of motion. 00:58 ECG was reviewed by the Attending Physician. ms3 Vital Signs: 01:02 BP 137 / 72; Pulse 70; Resp 20; Temp 98(O); Pulse Ox 94% on R/A; Weight 117.93 kg; kl Height 5 ft. 10 in. (177.80 cm); Pain 0/10; 01:28 BP 119 / 79; Pulse 76; Resp 11; Pulse Ox 97% ; vc1 02:00 BP 140 / 67; Pulse 79; Resp 18; Pulse Ox 96% ; vc1 02:46 BP 115 / 71; Pulse 66; Resp 16; Pulse Ox 92% ; vc1 01:02 Body Mass Index 37.31 (117.93 kg, 177.80 cm) MDM: 00:50 Patient medically screened. ms3 00:53 Differential diagnosis: abnormal EKG, acute myocardial infarction, congestive heart ms3 failure pneumonia. ED course: Outside labs from [facility] drawn May 01, 2022 showed a glucose of 113, BUN 12, creatinine 0.86, sodium 138, potassium 4.2, chloride 95, bicarb 27, calcium 10.1, CBC: White blood count 8.6, hemoglobin 17.0, hematocrit 48.5, platelets 467. Hemoglobin A1c 6.5. EKG from July 18, 2008 shows normal sinus rhythm with heart rate of 63.. 01:50 Independent interpretation of the following test(s) in the Emergency Department X-Ray: ms3 My interpretation is My interpretation of cxr image: vascular congestion. No PNA. potline monitor: rate is 72 beats/min, Rhythm is normal sinus rhythm, regular, with no ectopy, Interpretation: normal rate, normal rhythm. 03:28 Data reviewed: vital signs, nurses notes, lab test result(s), EKG, radiologic studies, ms3 plain films, and as a result, I will discharge patient. Consideration of Admission/Observation Escalation of care including admission/observation considered. No emergent medical condition necessitating admission found at this time. Counseling: I had a detailed discussion with the patient and/or guardian regarding: the historical points, exam findings, and any diagnostic results supporting the discharge/admit diagnosis, lab results, radiology results, the need for outpatient follow up, to return to the emergency department if symptoms worsen or persist or if there are any questions or concerns that arise at home. 05/06 00:51 Order name: Basic Metabolic Panel 3 05/06 00:51 Order name: CBC with Diff 3 05/06 00:51 Order name: Magnesium ms3 05/06 00:51 Order name: Troponin HS ms3 05/06 01:14 Order name: CBC with Automated Diff; Complete Time: 02:19 EDMS 05/06 01:31 Order name: Basic Metabolic Panel; Complete Time: 02:19 EDMS 05/06 00:51 Order name: XRAY Chest (1 view) 3 05/06 00:51 Order name: EKG; Complete Time: 00:51 3 05/06 00:51 Order name: Cardiac monitoring; Complete Time: 01:24 3 05/06 00:51 Order name: EKG - Nurse/Tech; Complete Time: 01:24 3 05/06 01:31 Order name: Troponin High Sensitivity; Complete Time: 02:19 EDMS 05/06 01:31 Order name: Magnesium; Complete Time: 02:19 EDMS 05/06 01:48 Order name: BNP; Complete Time: 03:16 kl 05/06 00:51 Order name: IV Saline Lock; Complete Time: :24 3 05/06 00:51 Order name: Labs collected and sent; Complete Time: 01:24 3 05/06 00:51 Order name: O2 Per Protocol; Complete Time: 01:24 ms3 05/06 00:51 Order name: O2 Sat Monitoring; Complete Time: ms3 EC:58 Rate is 77 beats/min. Rhythm is regular. QRS Ladora is Normal. QRS interval is normal. ms3 Clinical impression: Normal ECG. Interpreted by me. Reviewed by me. Administered Medications: 03:33 Drug: Potassium Chloride 40 mEq Route: PO; vc1 03:40 Follow up: Response: No adverse reaction aa9 Disposition Summary: 05/06/22 03:17 Discharge Ordered Location: Home ms3 Condition: Stable ms3 Diagnosis - Shortness of breath ms3 Followup: ms3 - With: Private Physician - When: 2 - 3 days - Reason: Recheck today's complaints Followup: ms3 - With: Miguelito Silva MD - When: 2 - 3 days - Reason: Recheck today's complaints Discharge Instructions: - Discharge Summary Sheet ms3 - Shortness of Breath, Adult ms3 Forms: - Medication Reconciliation Form ms3 - Thank You Letter ms3 - Antibiotic Education ms3 - Prescription Opioid Use ms3 Signatures: Dispatcher [employer] EDMarielos Stark RN RN kl Sims, Marcus, DO DO ms3 Delmy Mendiola RN RN vc1 Shannon Pike, PA-C PA-C sb4 Simona Mcduffie RN aa9
--- NOTE | 2022-05-06 03:18 | ER ---
Nurse's Notes [facility] Name: Liu Ugarte Age: 62 yrs Sex: Male : 1960 Arrival Date: 05/06/2022 Time: 00:41 Bed 6 Private MD: Diagnosis: Shortness of breath Presentation: 05/06 01:02 Chief complaint: Patient states: recently placed on BP meds and diabetic medication kl reports feels SOB x 4 days with periods of dizziness. Coronavirus screen: Vaccine status: Patient reports receiving the 2nd dose of the covid vaccine. Ebola Screen: Patient negative for fever greater than or equal to 101.5 degrees Fahrenheit, and additional compatible Ebola Virus Disease symptoms. Initial Sepsis Screen: Does the patient meet any 2 criteria? No. Patient's initial sepsis screen is negative. Does the patient have a suspected source of infection? No. Patient's initial sepsis screen is negative. Risk Assessment: Do you want to hurt yourself or someone else? Patient reports no desire to harm self or others. 01:02 Method Of Arrival: Ambulatory 01:02 Acuity: NAN 3 kl 01:05 Onset of symptoms is unknown. vc1 Triage Assessment: 01:07 General: Appears distressed, well groomed, well developed, Behavior is calm, kl cooperative. Pain: Denies pain. Cardiovascular: Heart tones S1 S2 Rhythm is sinus rhythm. Cardiovascular: Parent/caregiver reports patient has had orthopnea. Respiratory: Reports shortness of breath on exertion. Historical: - Allergies: 01:05 No Known Allergies; kl - Home Meds: 01:05 metformin 500 mg Oral tr24 1 tab once daily [Active]; atorvastatin 40 mg oral tab 1 tab kl once daily [Active]; lisinopril 20 mg Oral tab 1 tab once daily [Active]; - PMHx: 01:05 Hypertension; NIDDM; kl - PSHx: 01:05 hernia repair; kl - Immunization history:: Adult Immunizations not up to date. - Social history:: Smoking status: Patient denies any tobacco usage or history of. Screenin:00 [facility] ED Fall Risk Assessment (Adult) History of falling in the last 3 months, vc1 including since admission No falls in past 3 months (0 pts) Confusion or Disorientation No (0 pts) Intoxicated or Sedated No (0 pts) Impaired Gait No (0 pts) Mobility Assist Device Used No (0 pt) Altered Elimination No (0 pt) Score/Fall Risk Level 0 - 2 = Low Risk Oriented to surroundings, Maintained a safe environment, Educated pt \T\ family on fall prevention, incl call for assistance when getting out of bed. Abuse screen: Denies threats or abuse. Nutritional screening: No deficits noted. Tuberculosis screening: No symptoms or risk factors identified. Assessment: 01:00 Pain: Pain does not radiate. Pain began gradually, 2-3 days ago. vc1 02:44 Reassessment: No changes from previously documented assessment. Patient and/or family vc1 updated on plan of care and expected duration. Pain level reassessed. 03:40 Reassessment: Patient appears in no apparent distress at this time. Patient and/or aa9 family updated on plan of care and expected duration. Pain level reassessed. Patient is alert, oriented x 3, equal unlabored respirations, skin warm/dry/pink. Patient denies pain at this time. Vital Signs: 01:02 BP 137 / 72; Pulse 70; Resp 20; Temp 98(O); Pulse Ox 94% on R/A; Weight 117.93 kg; Height 5 ft. 10 in. (177.80 cm); Pain 0/10; 01:28 BP 119 / 79; Pulse 76; Resp 11; Pulse Ox 97% ; vc1 02:00 BP 140 / 67; Pulse 79; Resp 18; Pulse Ox 96% ; vc1 02:46 BP 115 / 71; Pulse 66; Resp 16; Pulse Ox 92% ; vc1 01:02 Body Mass Index 37.31 (117.93 kg, 177.80 cm) ED Course: 00:41 Patient arrived in ED. ja2 00:44 Alonzo Gallo DO is Attending Physician. ms3 01:00 Patient maintains SpO2 saturation greater than 95% on room air. vc1 01:00 Arm band placed on. vc1 01:00 Patient has correct armband on for positive identification. Placed in gown. Bed in low vc1 position. Call light in reach. Client placed on continuous cardiac and pulse oximetry monitoring. NIBP monitoring applied. 01:05 Triage completed. 01:10 Inserted saline lock: 20 gauge in right antecubital area, using aseptic technique. vc1 Blood collected. 01:24 Calcote, Delmy, RN is Primary Nurse. vc1 02:05 XRAY Chest (1 view) In Process Unspecified. EDMS 03:29 Miguelito Silva MD is Referral Physician. ms3 03:39 No provider procedures requiring assistance completed. IV discontinued, intact, aa9 bleeding controlled, No redness/swelling at site. Pressure dressing applied. Administered Medications: 03:33 Drug: Potassium Chloride 40 mEq Route: PO; vc1 03:40 Follow up: Response: No adverse reaction aa9 Medication: 02:49 VIS not applicable for this client. vc1 Outcome: 03:17 Discharge ordered by . ms3 03:40 Discharged to home ambulatory, with family. aa9 03:40 Condition: stable 03:40 Discharge instructions given to patient, Instructed on discharge instructions, follow up and referral plans. Demonstrated understanding of instructions, follow-up care. 03:40 Patient left the ED. aa9 Signatures: Dispatcher [employer] EDMS Marielos Mcgee RN RN kl Sims, Marcus, DO DO ms3 Ifeoma Juan2 Delmy Mendiola RN RN vc1 Simona Mcduffie, ELEUTERIO RN aa9
[2022-05-06] MEDS ORDERED: POTASSIUM CL SA 10 MEQ TAB PO ONE (03:25)
[2022-05-06 03:46] VITALS: TEMP 98
[2022-05-06 03:49] VITALS: BP 115/71; O2SAT 92
--- NOTE | 2022-05-07 20:12 | RAD REPORT ---
EXAM DESCRIPTION: RAD - Chest Single View - 05/06/2022 1:40 am CLINICAL HISTORY: The patient is 62 years old and is Male; DYSPNEA TECHNIQUE: Frontal view of the chest. COMPARISON: No relevant prior studies available. FINDINGS: Lungs: Mildly prominent interstitial and vascular markings. No consolidation. Pleural space: Unremarkable. No pneumothorax. Heart: Unremarkable. Mediastinum: Unremarkable. Bones/joints: Disc space narrowing with degenerative endplate changes in the spine. IMPRESSION: Mildly prominent interstitial and vascular markings. No consolidation. Electronically signed by: Dandy Carson MD 05/06/2022 1:48 AM [employer] Due to temporary technical issues with the PACS/Fluency reporting system, reports are being signed by the in house radiologists without review as a courtesy to insure prompt reporting. The interpreting radiologist is fully responsible for the content of the report.
== END 2022-05-06 03:40 | disposition home or self-care (01) ==
LOC: ER 00:39
DX: R06.02 Shortness of breath (principal); R42 Dizziness and giddiness; I10 Essential (primary) hypertension; E11.9 Type 2 diabetes mellitus without complications
CPT/HCPCS: 36415; 71045; 80048; 83735; 83880; 84484; 85025; 93005; 99285

== ENCOUNTER 2025-02-05 00:37 | Emergency (ER) | payer OTHER, SELFPAY ==
[2025-02-05] MEDS ORDERED: METOCLOPRAMIDE 10 MG/2mL INJ ONE (03:44)
[2025-02-05] MEDS ORDERED: KETOROLAC 30 MG/ML INJ ONE (03:44)
[2025-02-05] MEDS ORDERED: DIPHENHYDRAMINE 50 MG/ML VIAL ONE (03:44)
[2025-02-05 04:15] LABS: ALT/SGPT 51 U/L (16-61); AST/SGOT 31 U/L (15-37); Albumin 4.0 g/dL (3.4-5.0); Albumin/Globulin Ratio 0.8 (1.1-1.8); Alkaline Phosphatase 53 U/L (45-117); Anion Gap 10.3 mEq/L (5.0-15.0); BUN Blood Urea Nitrogen 10 mg/dL (7-18); Bilirubin Indirect, Calculated 0.2 mg/dL (0.2-0.8); Globulin 4.9 g/dL (2.3-3.5); Glucose Level 140 mg/dL (74-106); NT PRO-BNP 20 pg/mL (<125); Potassium 3.3 mEq/L (3.5-5.1); Troponin High Sensitivity 4.8 pg/mL (<58.9)
[2025-02-05 04:19] LABS: Absolute Lymphocytes (CBC) 2.8 K/uL (0.7-4.9); Hematocrit 47.2 % (39.6-49.0); Hemoglobin 16.2 g/dL (13.6-17.9); MCH 31.3 pg (27.0-35.0); MCHC 34.3 g/dL (32.0-36.0); MCV 91.3 fL (80-100); MPV 6.9 fL (7.6-11.3); Nucleated RBC Absolute Count 0.0 (0-0); Nucleated Red Blood Cells % 0.1 % (0-0); RBC Red Blood Cell Count 5.17 M/uL (4.33-5.43); White Blood Count 12.60 thou/uL (4.3-10.9)
[2025-02-05 04:20] LABS: Thyroid Stimulating Hormone 3.44 uIU/mL (0.358-3.740)
--- NOTE | 2025-02-05 05:31 | EDPHYS ---
Physician Documentation [facility] Name: Liu Boucher Age: 65 yrs Sex: Male : 1960 Arrival Date: 02/05/2025 Time: 00:37 Bed 2 Private MD: ED Physician Charles Sim HPI: 02/05 01:08 This 65 yrs old Male presents to ER via Ambulatory with complaints of High sp4 Blood Pressure. 02/06 02:53 Patient presents with complaint of acute blood pressure elevation. Patient states he sp4 also has associated headache. Patient takes lisinopril HCTZ, and amlodipine.. Historical: - Allergies: 02/05 01:05 No Known Allergies; jj7 - PMHx: 01:05 Hypertension; NIDDM; Anxiety; jj7 - PSHx: 01:05 hernia repair; jj7 - Immunization history:: Adult Immunizations up to date. - Infectious Disease History:: Denies. - Social history:: Smoking status: Patient denies any tobacco usage or history of. Patient uses alcohol, occasionally. Patient/guardian denies using street drugs, IV drugs. - Family history:: not pertinent. ROS: 02/06 02:53 Constitutional: Negative for fever, chills, and weight loss, sp4 All other systems are negative, Exam: 02/05 04:57 Constitutional: This is a well developed, well nourished patient who is awake, alert, sp4 and in no acute distress. Head/Face: Normocephalic, atraumatic. Eyes: Pupils equal round and reactive to light, extra-ocular motions intact. Lids and lashes normal. Conjunctiva and sclera are not injected. Cornea within normal limits. Periorbital areas with no swelling, redness, or edema. ENT: Nares patent. No nasal discharge, no septal abnormalities noted. Tympanic membranes are normal and external auditory canals are clear. Oropharynx with no redness, swelling, or masses, exudates, or evidence of obstruction, uvula midline. Mucous membranes moist. Neck: Trachea midline, no thyromegaly or masses palpated, and no cervical lymphadenopathy. Supple, full range of motion without nuchal rigidity, or vertebral point tenderness. Chest/axilla: Normal chest wall appearance and motion. Nontender with no deformity. No lesions are appreciated. Cardiovascular: Regular rate and rhythm with a normal S1 and S2. No gallops, murmurs, or rubs. No pulse deficits. Respiratory: Lungs have equal breath sounds bilaterally, clear to auscultation and percussion. No rales, rhonchi or wheezes noted. No increased work of breathing, no retractions or nasal flaring. Abdomen/GI: Soft, with normal bowel sounds. No distension or tympany. No guarding or rebound. No evidence of tenderness throughout. Back: No spinal tenderness. No costovertebral tenderness. Skin: Warm, dry with normal turgor. Normal color with no rashes, no lesions, and no evidence of cellulitis. MS/ Extremity: Pulses equal, no cyanosis. Neurovascular intact. Full, normal range of motion. Neuro: Awake and alert, GCS 15, oriented to person, place, time, and situation. Cranial nerves II-XII grossly intact. Motor strength 5/5 in all extremities. Sensory grossly intact. Psych: Awake, alert, with orientation to person, place and time. Behavior, mood, and affect are within normal limits ECG was reviewed by the Attending Physician. [place] 0401 normal sinus rhythm normal EKG. Rate 62. Vital Signs: 00:57 BP 153 / 78; Pulse 79; Resp 20; Temp 98.6; Pulse Ox 100% ; Weight 115.67 kg; Height 5 jj7 ft. 10 in. ; Pain 0/10; 03:53 BP 143 / 92; Pulse 66; Resp 18; Pulse Ox 98% ; cp4 05:47 BP 132 / 85; Pulse 61; Resp 18; Pulse Ox 98% ; cp4 00:57 Body Mass Index 36.59 (115.67 kg, 177.8 cm) [facility] 00:57 Pain Scale: Adult [facility] [place] Coma Score: 04:57 Eye Response: spontaneous(4). Verbal Response: oriented(5). Motor Response: obeys sp4 commands(6). Total: 15. MDM: 01:10 Medical Screening Exam initiated sp4 02/06 02:53 Differential diagnosis: hypertensive crisis, Malignant HTN, Acute migraine headache. sp4 Data reviewed: vital signs, nurses notes, old medical records, lab test result(s), EKG. Consideration of Admission/Observation Escalation of care including admission/observation considered. ED course: Headache and blood pressure has improved. Patient stable for discharge home.. 02/05 01:09 Order name: Basic Metabolic Panel; Complete Time: 04:57 sp4 02/05 01:09 Order name: CBC with Diff; Complete Time: 04:57 sp4 02/05 01:09 Order name: LFT's; Complete Time: 04:57 sp4 02/05 01:09 Order name: NT PRO-BNP; Complete Time: 04:57 sp4 02/05 01:09 Order name: Troponin HS; Complete Time: 04:57 sp4 02/05 01:55 Order name: T4 Free; Complete Time: 04:57 sp4 02/05 01:55 Order name: TSH; Complete Time: 04:57 sp4 02/05 01:09 Order name: EKG; Complete Time: 01:09 4 02/05 01:09 Order name: Cardiac monitoring; Complete Time: 03:43 sp4 02/05 01:09 Order name: EKG - Nurse/Tech; Complete Time: 03:58 4 02/05 01:09 Order name: IV Saline Lock; Complete Time: 03:43 4 02/05 01:09 Order name: Labs collected and sent; Complete Time: 03:43 4 02/05 01:09 Order name: O2 Per Protocol; Complete Time: 03:43 4 02/05 01:09 Order name: O2 Sat Monitoring; Complete Time: 03:43 4 EC/30 04:01 Rate is 62 beats/min. Rhythm is regular, Normal Sinus Rhythm. QRS [place] is Normal. [place] sp4 interval is normal. QRS interval is normal. QT interval is normal. No Q waves. T waves are Normal. No ST changes noted. Clinical impression: Normal ECG. Interpreted by me. Reviewed by me. Administered Medications: 03:54 Drug: diphenhydrAMINE IVP 25 mg IVP once Route: IVP; Site: right antecubital; cp4 05:48 Follow up: Response: No adverse reaction cp4 03:55 Drug: Ketorolac IVP 30 mg IVP once Route: IVP; Site: right antecubital; cp4 05:48 Follow up: Response: No adverse reaction; Pain is decreased cp4 03:55 Drug: metoCLOPramide IVP 10 mg IVP once; over 1 to 2 minutes Route: IVP; Site: right cp4 antecubital; 05:48 Follow up: Response: No adverse reaction cp4 Disposition: 02/06 03:04 Chart complete. sp4 Disposition Summary: 02/05/25 05:30 Discharge Ordered Notes: Location: Home sp4 Problem: new sp4 Symptoms: have improved sp4 Condition: Stable sp4 Diagnosis - Acute elevation of blood pressure, acute tension headache sp4 Followup: sp4 - With: Private Physician - When: 7 - 10 days - Reason: Recheck today's complaints Discharge Instructions: - Discharge Summary Sheet sp4 - Tension Headache, Adult, [id number] sp4 Forms: - Patient Portal Instructions sp4 Prescriptions: - Fioricet 50-300-40 mg Oral capsule - take 1 capsule ORAL route 3 times per day as needed for pain; 30 capsule; sp4 Refills: 0, Product Selection Permitted Signatures: Dispatcher [employer] Gamaliel Gibbs RN RN jj7 Charles Sim MD MD sp4 Suzanne Downing 4 Corrections: (The following items were deleted from the chart) 02/05 01:09 01:09 BASIC METABOLIC PANEL+C.LAB.BRZ ordered. EDMS EDMS 01:09 01:09 CBC+H.LAB.BRZ ordered. EDMS EDMS 01:09 01:09 HEPATIC FUNCTION+C.LAB.BRZ ordered. EDMS EDMS 01:09 01:09 PROBNP+C.LAB.BRZ ordered. EDMS EDMS 01:09 01:09 Troponin High Sensitivity+C.LAB.BRZ ordered. EDMS EDMS
--- NOTE | 2025-02-05 05:31 | ER ---
Nurse's Notes [facility] Name: Liu Boucher Age: 65 yrs Sex: Male : 1960 Arrival Date: 02/05/2025 Time: 00:37 Bed 2 Private MD: Diagnosis: Acute elevation of blood pressure, acute tension headache Presentation: 02/05 00:57 Chief complaint: Patient states: HAS BEEN HAVING HIGH BP SINCE THIS MORNING .HAS HX OF jj HTN. Coronavirus screen: At this time, the client does not indicate any symptoms associated with coronavirus-19. Ebola Screen: No symptoms or risks identified at this time. Initial Sepsis Screen: Does the patient meet any 2 criteria? No. Patient's initial sepsis screen is negative. Does the patient have a suspected source of infection? No. Patient's initial sepsis screen is negative. Risk Assessment: Do you want to hurt yourself or someone else? Patient reports no desire to harm self or others. Note LOSARTAN AND AMLODIPINE. Onset of symptoms was February 05, 2025. 00:57 Method Of Arrival: Ambulatory [facility] 00:57 Acuity: NAN 3 jj7 Triage Assessment: 01:05 General: Appears in no apparent distress. comfortable. Pain: Complains of pain in head. jj7 Neuro: Reports headache frontal area, Denies blurred vision dizziness. Respiratory: No deficits noted. 01:05 General: Behavior is calm, cooperative, appropriate for age. jj7 Historical: - Allergies: 01:05 No Known Allergies; jj7 - PMHx: 01:05 Hypertension; NIDDM; Anxiety; jj7 - PSHx: 01:05 hernia repair; jj7 - Immunization history:: Adult Immunizations up to date. - Infectious Disease History:: Denies. - Social history:: Smoking status: Patient denies any tobacco usage or history of. Patient uses alcohol, occasionally. Patient/guardian denies using street drugs, IV drugs. - Family history:: not pertinent. Screenin:55 [facility] ED Fall Risk Assessment (Adult) History of falling in the last 3 months, cp4 including since admission No falls in past 3 months (0 pts) Confusion or Disorientation No (0 pts) Intoxicated or Sedated No (0 pts) Impaired Gait No (0 pts) Mobility Assist Device Used No (0 pt) Altered Elimination No (0 pt) Score/Fall Risk Level 0 - 2 = Low Risk Oriented to surroundings, Maintained a safe environment, Assessed \T\ reinforced patient's understanding of fall precautions, Hourly rounding (assess needs \T\ fall precautionary measures) done. Abuse screen: Denies threats or abuse. Denies injuries from another. Nutritional screening: No deficits noted. Tuberculosis screening: No symptoms or risk factors identified. Never had TB. Assessment: 03:55 General: Appears in no apparent distress. uncomfortable, Behavior is calm, cooperative, cp4 appropriate for age. Pain: Complains of pain in head Pain does not radiate. Pain at worst was 5 out of 10 on a pain scale. Quality of pain is described as aching. Neuro: Level of Consciousness is awake, alert, obeys commands. Cardiovascular: Patient's skin is warm and dry. Rhythm is sinus rhythm. Respiratory: Airway is patent Respiratory effort is even, unlabored. GI: No signs and/or symptoms were reported involving the gastrointestinal system. : No signs and/or symptoms were reported regarding the genitourinary system. EENT: No signs and/or symptoms were reported regarding the EENT system. Derm: No signs and/or symptoms reported regarding the dermatologic system. Musculoskeletal: No signs and/or symptoms reported regarding the musculoskeletal system. Vital Signs: 00:57 BP 153 / 78; Pulse 79; Resp 20; Temp 98.6; Pulse Ox 100% ; Weight 115.67 kg; Height 5 jj7 ft. 10 in. ; Pain 0/10; 03:53 BP 143 / 92; Pulse 66; Resp 18; Pulse Ox 98% ; cp4 05:47 BP 132 / 85; Pulse 61; Resp 18; Pulse Ox 98% ; cp4 00:57 Body Mass Index 36.59 (115.67 kg, 177.8 cm) j7 00:57 Pain Scale: Adult j7 [place] Coma Score: 04:57 Eye Response: spontaneous(4). Verbal Response: oriented(5). Motor Response: obeys sp4 commands(6). Total: 15. ED Course: 00:42 Patient arrived in ED. gm2 01:05 Triage completed. jj7 01:05 Arm band placed on. jj7 01:08 Charles Sim MD is Attending Physician. sp4 03:35 Suzanne Downing is Primary Nurse. cp4 03:55 Bed in low position. Call light in reach. Side rails up X2. cp4 03:55 No provider procedures requiring assistance completed. Initial lab(s) drawn, by ED cp4 staff, sent to lab. Inserted saline lock: 20 gauge in right antecubital area, using aseptic technique. Blood collected. Flushed with 10 mL NS. 05:48 Provided Education on: headache. cp4 05:48 intact, bleeding controlled, No redness/swelling at site. Pressure dressing applied. cp4 Administered Medications: 03:54 Drug: diphenhydrAMINE IVP 25 mg IVP once Route: IVP; Site: right antecubital; cp4 05:48 Follow up: Response: No adverse reaction cp4 03:55 Drug: Ketorolac IVP 30 mg IVP once Route: IVP; Site: right antecubital; cp4 05:48 Follow up: Response: No adverse reaction; Pain is decreased cp4 03:55 Drug: metoCLOPramide IVP 10 mg IVP once; over 1 to 2 minutes Route: IVP; Site: right cp4 antecubital; 05:48 Follow up: Response: No adverse reaction cp4 Medication: 03:55 VIS not applicable for this client. cp4 Outcome: 05:30 Discharge ordered by . sp4 05:48 Discharged to home ambulatory, cp4 05:48 Condition: stable 05:48 Discharge instructions given to patient, family, Instructed on discharge instructions, follow up and referral plans. medication usage, Demonstrated understanding of instructions, follow-up care, medications, Prescriptions given X 1, 05:51 Patient left the ED. cp4 Signatures: Gamaliel Dowell RN RN jj7 Charles Sim MD MD sp4 Potter, Christina 4 Vanessa Cr 2
[2025-02-05 05:56] VITALS: TEMP 98.6
[2025-02-05 05:57] VITALS: O2SAT 98
[2025-02-05 05:58] VITALS: BP 132/85
== END 2025-02-05 05:51 | disposition home or self-care (01) ==
LOC: ER 00:37
DX: I10 Essential (primary) hypertension (principal); G44.209 Tension-type headache, unspecified, not intractable
CPT/HCPCS: 93005; 85025; 80048; 36415; 80076; 84443; 84484; 84439; 83880; 96375; 96374; 99284; J1885; J2765; J1200